=== PATIENT | female | born 1945 | race Caucasian/White ===

== ENCOUNTER 2019-08-28 15:00 | Outpatient (CLI) | payer OTHER, SELFPAY | END 2019-08-28 16:00 | disposition home or self-care (01) | LOC: SLB 15:00 → EDSTATUS 09-02 11:45 | PROVIDERS: ATTEND Colon & Rectal Surgery | DX: Z03.818 Encounter for observation for suspected exposure to other biological agents ruled out (principal) | CPT/HCPCS: U0003-CS ==

== ENCOUNTER 2019-09-09 06:15 | Inpatient (IN) | payer OTHER ==
[~2019-09-09] VITALS: Ht 157.5 cm; Wt 57.2 kg
[2019-09-09] MEDS ORDERED: ALVIMOPAN 12 MG CAPSULE PO ONE ×2 (06:51→07:00)
[2019-09-09] MEDS ORDERED: cefOXitin SODIUM 2 GM in D5W 100 ML IV ONE (07:00)
[2019-09-09] MEDS ORDERED: ENOXAPARIN SODIUM 30 MG/0.3 ML SYRINGE SUBCUT SCH (09:00)
[2019-09-09] MEDS: FAMOTIDINE PF 20 MG/2 ML VIAL IVP SCH ×2 (09:00→21:15)
[2019-09-09] MEDS ORDERED: ACETAMINOPHEN 325 MG TABLET PO PRN (09:00)
[2019-09-09] MEDS ORDERED: ONDANSETRON HCL 4 MG/2 ML VIAL IVP PRN ×2 (09:00→09:15)
[2019-09-09] MEDS ORDERED: HYDROcodone/ACETAMIN 5-325 MG TAB (NORCO/ VICODIN) PO PRN (09:00)
[2019-09-09] MEDS ORDERED: LR 500 ML IV SCH (09:09)
[2019-09-09] MEDS: HYDROmorphone 1 MG INJ. 1 MG/ML AMPUL IVP PRN ×5 (09:10→13:41)
[2019-09-09] MEDS ORDERED: BUPIVACAINE /PF 0.25% 30 ML VIAL INJ ONE (09:12)
[2019-09-09] MEDS ORDERED: GLYCOPYRROLATE 0.2 MG/ML VIAL ONE (09:12)
[2019-09-09] MEDS ORDERED: ONDANSETRON HCL 4 MG/2 ML VIAL ONE (09:12)
[2019-09-09] MEDS ORDERED: NEOSTIGMINE METHYLSULFATE 1 MG/ML, 10 ML VIAL ONE (09:12)
[2019-09-09] MEDS ORDERED: METOCLOPRAMIDE HCL 10 MG/2 ML VIAL ONE (09:12)
[2019-09-09] MEDS ORDERED: LR 1,000 ML IV.SOLN IV ONE (09:12)
[2019-09-09] MEDS ORDERED: fentaNYL CITRATE/PF 100 MCG/2 ML AMP ONE (09:12)
[2019-09-09] MEDS ORDERED: PROPOFOL 200MG/ 20ML VIAL (DIPRIVAN) IV ONE (09:12)
[2019-09-09] MEDS ORDERED: SEVOFLURANE 15 MIN GAS INH ONE (09:12)
[2019-09-09] MEDS ORDERED: NS IRRIG SOLN 1000 ML IR ONE (09:12)
[2019-09-09] MEDS ORDERED: hydrALAZINE HCL 20 MG/ML VIAL IVP PRN (09:15)
[2019-09-09] MEDS ORDERED: HYDROmorphone 2 MG/ML VIAL IVP PRN (09:15)
[2019-09-09] MEDS ORDERED: HYDROmorphone 1 MG INJ. 1 MG/ML AMPUL ONE (09:27)
[2019-09-09] MEDS ORDERED: MEGE400O2 PO (09:57)
[2019-09-09] MEDS ORDERED: PRO20 PO (09:57)
[2019-09-09] MEDS ORDERED: IRON-14 PO (09:57)
[2019-09-09] MEDS ORDERED: LORA-258 PO (09:57)
[2019-09-09] MEDS ORDERED: SODI650T PO (09:57)
[2019-09-09] MEDS ORDERED: PRO40 PO (09:57)
[2019-09-09] MEDS ORDERED: FAMO40TA7 PO (09:57)
--- NOTE | 2019-09-09 10:20 | NUR ---
Notes- Received pt from [facility], drowsy but responsive. Pain id controlled at this time. Dressing is dry and intact on the left side of the abdomen. oriented to call light uses and incentive spirometer but patient still drowsy at this time. will re educate once fully awake. bed alarm on. Will monitor.
[2019-09-09] MEDS: ALVIMOPAN 12 MG CAPSULE PO SCH ×2 (10:30→21:14)
[2019-09-09] MEDS: D5/0.45 NS 1,000 ML IV SCH ×3 (10:30→21:19)
[2019-09-09 10:53] VITALS: BP_SYST 152
[2019-09-09] MEDS ORDERED: cefOXitin SODIUM 2 GM in D5W 100 ML IV SCH (11:00)
--- NOTE | 2019-09-09 11:02 | NUR ---
CONSULTATION PAGED/CALLED Reason for Consultation: [] MEDICAL MGMT Person Who was Notified: [] BAKARI Consulting Physician: [] DR ARRIETA Professor Of Criminal Justice Specialty: [] INTERNAL MEDICINE Ordering Physician: [] DR DUONG ANLGIN
[2019-09-09 11:03] VITALS: BP_SYST 152
--- NOTE | 2019-09-09 11:41 | NUR ---
Notes- Asleep, Breathing even and unlabored. V/S stable. on room air o2 sat at 98%. will monitor.
[2019-09-09] MEDS: METOCLOPRAMIDE HCL 10 MG/2 ML VIAL IVP SCH ×2 (12:21→18:39)
[2019-09-09 12:49] LABS: HEMATOCRIT 26.8 % (36-48); HEMOGLOBIN 8.7 g/dL (12.0-16.0)
[2019-09-09 13:03] LABS: ANION GAP 14 (5-15); CALCIUM 8.3 mg/dL (8.4-11.0); CHLORIDE 112 mmol/L (98-107); CREATININE 4.74 mg/dL (0.55-1.30); GLUCOSE 100 mg/dL (70-99); POTASSIUM 4.2 mmol/L (3.5-5.1); SODIUM SERUM 139 mmol/L (136-145); UREA NITROGEN, BLOOD 55 mg/dL (8-21)
--- NOTE | 2019-09-09 13:45 | NUR ---
Notes- Complains of strong pain, medicated as ordered. Encourage to use incentive spirometer to prevent pneumonia. Pt verbalize understanding.
[2019-09-09 15:21] VITALS: BP_SYST 152
[2019-09-09 16:00] VITALS: BP_SYST 128
--- NOTE | 2019-09-09 16:00 | NUR ---
notes- pt does not voided yet, enc. patient to void and put bedpan at this time, since patient refused to get out of bed. pt stated that she does not have urgency to void at this time. Will try again later.
--- NOTE | 2019-09-09 17:50 | NUR ---
Notes- Resting in bed, still does not have urgency to void. bladder scan done and has 450ml reading. sarah mas MD.
--- NOTE | 2019-09-09 18:11 | NUR ---
MD mas. Spoke to DR. Light and ordered to put maria eugenia and tk in am.
--- NOTE | 2019-09-09 18:55 | NUR ---
Chappell cath inserted with 400cc drain in the bag. Pain is controlled at this time. No acute distress noted. will endorse.
--- NOTE | 2019-09-09 19:30 | NUR ---
OPENING NOTES RECEIVED SBAR REPORT FROM DAY SHIFT RN. PT RESTING IN BED, ALERT & ORIENTED X4, COOPERATIVE. BREATHING IS EVEN AND UNLABORED TO ROOM AIR. IV INTACT, INFUSING ORDERED RATE. PT TOLERATING WELL. DRESSING IS DRY AND INTACT ON THE LEFT SIDE OF THE ABDOMEN. SIDE RAILS X2. CALL LIGHT WITHIN REACH. BED ALARM ON. SAFETY PRECAUTIONS IN PLACE. WILL CONTINUE TO MONITOR.
[2019-09-09 20:00] VITALS: BP_SYST 133
[2019-09-09] MEDS: cefOXitin SODIUM 2 GM in D5W 100 ML IV SCH (21:13)
--- NOTE | 2019-09-09 21:15 | NUR ---
MEDICATION PASS SCHEDULED MEDICATIONS ADMINISTERED ORDERED. DISCUSSED MEDICATIONS ACTION AND POTENTIAL SIDE EFFECTS. PT VERBALIZED UNDERSTANDING. PT GARRISON SHORTNESS OF BREATH. CALL LIGHT WITHIN REACH. BED ALARM ON. SAFETY PRECAUTIONS MAINTAINED. WILL CONTINUE TO MONITOR.
[2019-09-09] MEDS: HYDROcodone/ACETAMIN 5-325 MG TAB (NORCO/ VICODIN) PO PRN (22:40)
--- NOTE | 2019-09-09 22:40 | NUR ---
NORCO/PAIN MEDICATION PT REPORTING LEFT ABDOMEN (INCISION) PAIN. ADMINISTERED NORCO ORDERED PRN. DISCUSSED MEDICATION ACTIONS AND POTENTIAL SIDE EFFECTS. PT VERBALIZED UNDERSTANDING. CALL LIGHT WITHIN REACH. BED LOCKED IN LOWEST LEVEL. SIDE RAILS X2. SAFETY AND FALL PRECAUTIONS ARE IN PLACE. WILL MONITOR.
[2019-09-10 00:16] VITALS: BP_SYST 141
[2019-09-10] MEDS: METOCLOPRAMIDE HCL 10 MG/2 ML VIAL IVP SCH ×3 (00:41→11:22)
[2019-09-10] MEDS: HYDROmorphone 1 MG INJ. 1 MG/ML AMPUL IVP PRN (00:43)
--- NOTE | 2019-09-10 00:43 | NUR ---
DILAUDID/PAIN MEDICATION PT REPORTING SEVERE LEFT ABDOMEN (INCISION) PAIN AT THIS TIME. ADMINISTERED DILAUDID ORDERED PRN. DISCUSSED MEDICATION ACTIONS AND POTENTIAL SIDE EFFECTS. PT VERBALIZED UNDERSTANDING. CALL LIGHT WITHIN REACH. BED LOCKED IN LOWEST LEVEL. SIDE RAILS X2. SAFETY AND FALL PRECAUTIONS ARE IN PLACE. WILL MONITOR.
--- NOTE | 2019-09-10 02:55 | NUR ---
RN ROUNDS PT RESTING IN BED. BREATHING EVEN AND UNLABORED TO ROOM AIR. NO S/S OF PAIN OR SHORTNESS OF BREATH NOTED. IVF INFUSING ORDERED RATE. PT TOLERATING WELL. CALL LIGHT WITHIN REACH. SIDE RAILS X3. BED ALARM ON. SAFETY AND FALL PRECAUTIONS MAINTAINED. WILL CONTINUE TO MONITOR.
--- NOTE | 2019-09-10 05:05 | NUR ---
RESTING PT RESTING IN BED. PT STATED THAT PAIN WAS CONTROLLED WITH DILAUDID MEDICATION. BREATHING IS EASY AND UNLABORED TO ROOM AIR. IVF INFUSING ORDERED RATE. PT TOLERATING WELL. CALL LIGHT WITHIN REACH. SIDE RAILS X3. BED ALARM ON, LOCKED IN LOWEST LEVEL. SAFETY AND FALL PRECAUTIONS IN PLACE. WILL CONTINUE TO MONITOR.
--- NOTE | 2019-09-10 06:45 | NUR ---
CLOSING NOTES PT RESTING IN BED. BREATHING IS EVEN AND UNLABORED TO ROOM AIR. IV INTACT, INFUSING ORDERED RATE. PT TOLERATING WELL. DRESSING IS DRY AND INTACT ON THE LEFT SIDE OF THE ABDOMEN. SIDE RAILS X3. CALL LIGHT WITHIN REACH. BED ALARM ON. SAFETY AND FALL PRECAUTIONS IN PLACE. ALL NEEDS ARE MET THROUGHOUT SHIFT. WILL CONTINUE TO MONITOR UNTIL ENDORSE TO DAY SHIFT RN.
[2019-09-10 07:10] LABS: BASOPHILS % (AUTO) 0.3 % (0.0-2.0); EOSINOPHILS # (AUTO) 0.1 K/uL (0.0-0.4); EOSINOPHILS % (AUTO) 0.9 % (0.0-4.0); HEMATOCRIT 23.9 % (36-48); HEMOGLOBIN 7.9 g/dL (12.0-16.0); LYMPHOCYTES # (AUTO) 0.7 K/uL (1.0-5.5); MEAN CORPUSCULAR HEMOGLOBIN 34 pg (27-31); MEAN CORPUSCULAR HGB CONC 33 % (32-36); MEAN CORPUSCULAR VOLUME 102 fL (79.0-98.0); MONOCYTES # (AUTO) 0.4 K/uL (0.0-1.0); MONOCYTES % (AUTO) 3.7 % (1.7-9.3); NEUTROPHILS # (AUTO) 8.8 K/uL (1.8-7.7); NEUTROPHILS % (AUTO) 88.1 % (40.0-70.0); PLATELET COUNT (AUTO) 180 K/uL (130-430); RED BLOOD CELL COUNT(AUTO) 2.35 MIL/uL (4.2-6.2); RED CELL DISTRIBUTION WIDTH 15.7 % (9.0-15.0); WHITE BLOOD COUNT (AUTO) 9.9 K/uL (4.8-10.8)
--- NOTE | 2019-09-10 07:20 | NUR ---
INITIAL NOTE PT RESTING IN BED, NO ACUTE DISTRESS NOTED, BREATHING EVEN AND UNLABORED. PT ON ROOM AIR, SATURATING AT 99%. IVF INFUSING WELL. HAMMOND DRAINING TO GRAVITY. SCD'S IN PLACE. CALL LIGHT WITHIN REACH, BED IN LOW AND LOCKED POSITION WITH BED ALARM ON.
--- NOTE | 2019-09-10 07:24 | NUR ---
Nutrition Update Josue Scale 16 noted. Pt admitted for Malignant Neoplasm of Colon, unspecified Diet: NPO BMI: 23 kg/m2 RD to follow per nutrition care standards.
[2019-09-10 07:51] LABS: ALANINE AMINOTRANSFERASE 19 U/L (12-78); ALBUMIN 2.6 g/dL (3.4-4.8); ANION GAP 13 (5-15); ASPARTATE AMINOTRANSFERASE 15 U/L (10-37); CALCIUM 7.7 mg/dL (8.4-11.0); CHLORIDE 112 mmol/L (98-107); CREATININE 3.92 mg/dL (0.55-1.30); GLUCOSE 120 mg/dL (70-99); POTASSIUM 3.9 mmol/L (3.5-5.1); SODIUM SERUM 138 mmol/L (136-145); TOTAL BILIRUBIN 0.2 mg/dL (0.0-1.0); UREA NITROGEN, BLOOD 46 mg/dL (8-21)
[2019-09-10 08:00] VITALS: BP_SYST 119
--- NOTE | 2019-09-10 09:00 | NUR ---
D/C HAMMOND OUTPUT 250CC, CLEAR AND YELLOW. PT TOLERATED WELL. PT COMPLAINING OF ABDOMINAL PAIN 08/10. EDUCATED PT ON USES AND SIDE EFFECTS OF NORCO. PT VERBALIZED UNDERSTANDING. NORCO ADMINISTERED. WILL CONTINUE TO MONITOR.
[2019-09-10] MEDS: cefOXitin SODIUM 2 GM in D5W 100 ML IV SCH (09:33)
[2019-09-10] MEDS: ALVIMOPAN 12 MG CAPSULE PO SCH ×2 (09:34→20:29)
[2019-09-10] MEDS: HYDROcodone/ACETAMIN 5-325 MG TAB (NORCO/ VICODIN) PO PRN ×2 (09:34→20:37)
[2019-09-10] MEDS: FAMOTIDINE PF 20 MG/2 ML VIAL IVP SCH ×2 (09:35→20:29)
[2019-09-10] MEDS: D5/0.45 NS 1,000 ML IV SCH ×2 (09:35→20:28)
[2019-09-10] MEDS: ENOXAPARIN SODIUM 30 MG/0.3 ML SYRINGE SUBCUT SCH (09:37)
--- NOTE | 2019-09-10 09:45 | NUR ---
DR. ARRIETA SPOKE WITH MD AT NURSES STATION, INFORMED MD THAT PT IS COMPLAINING OF CONGESTION WITH PRODUCTIVE PHLEGM AND A SORE THROAT. MD STATED HE WILL GO SEE THE PT AT BEDSIDE.
--- NOTE | 2019-09-10 11:36 | NUR ---
RN ROUND PAIN CONTROLLED AT THIS TIME. PT AWAKE, RESTING IN BED. NO CHANGE IN ASSESSMENT. WILL CONTINUE TO MONITOR.
[2019-09-10 12:41] VITALS: BP_SYST 126
--- NOTE | 2019-09-10 13:30 | NUR ---
RN ROUNDS PT RESTING AT THIS TIME. PAIN CONTROLLED AT THIS TIME. WILL CONTINUE TO MONITOR.
--- NOTE | 2019-09-10 15:10 | NUR ---
DR. ANGLIN/RN ROUNDS MD AT BEDSIDE EXAMINING PT, INFORMED MD THAT PT HAS BEEN PASSING GAS, BUT HAS NOT HAD ANY URINE OUTPUT SINCE 9AM WHEN HAMMOND WAS D/C'ED. TO PUT IN NEW ORDERS.
[2019-09-10 16:00] VITALS: BP_SYST 129
--- NOTE | 2019-09-10 18:00 | NUR ---
URINE OUTPUT PT WAS ABLE TO URINATE IN TO BED ROSE. WILL CONTINUE TO MONITOR. BLADDER SCAN SHOWED 200CC.
--- NOTE | 2019-09-10 19:15 | NUR ---
OPENING NOTES PATIENT IN BED AAOX 4. BREATHING UNLABORED ON ROOM AIR. IVF INFUSING. LEFT ABDOMINAL DRESSING DRY AND INTACT. CALL LIGHT WITH IN REACH.
--- NOTE | 2019-09-10 19:32 | NUR ---
CLOSING NOTE PT AWAKE, RESTING IN BED. PAIN CONTROLLED AT THIS TIME. PT TOLERATED DINNER WELL. IVF INFUSING WELL. CALL LIGHT WITHIN REACH, BED IN LOW AND LOCKED POSITION WITH BED ALARM ON. ALL NEEDS MET THROUGHOUT SHIFT. PT CARE ENDORSED TO HEALTH AND NUTRITION SPECIALIST RN.
[2019-09-10 20:32] VITALS: BP_SYST 153
--- NOTE | 2019-09-10 20:37 | NUR ---
PAING MGT PATIENT DUE MEDICATIONS GIVEN. MEDICATED WITH NORCO FOR C/O LUQ ABDOMINAL PAIN 12/11. VITAL SIGNS STABLE.
--- NOTE | 2019-09-10 20:55 | NUR ---
HS CARE HS CARE DONE. PATIENT CHUX CHANGED. CALL LIGHT WITH IN REACH.
[2019-09-10 23:55] VITALS: BP_SYST 139
[2019-09-11] MEDS: METOCLOPRAMIDE HCL 10 MG/2 ML VIAL IVP SCH ×3 (01:54→12:21)
--- NOTE | 2019-09-11 02:05 | NUR ---
ROUNDS PATIENT RESTING IN BED. IVF INFUSING. DENIES PAIN. VITAL SIGNS STABLE. CALL LIGHT WITH IN REACH.
--- NOTE | 2019-09-11 04:16 | NUR ---
ROUNDS PATIENT ASSISTED WITH BEDPAN USE.
[2019-09-11] MEDS: D5/0.45 NS 1,000 ML IV SCH (06:13)
--- NOTE | 2019-09-11 06:18 | NUR ---
CLOSING NOTES ASSISTED WITH BED ROSE USE. PATIENT NEEDS ATTENDED. IVF INFUSING WITH IV LINE INTACT AND PATENT. LEFT ABDOMEN DRESSING DRY AND INTACT. CALL LIGHT WITH IN REACH.
--- NOTE | 2019-09-11 07:30 | NUR ---
INITIAL NOTE PT RESTING IN BED, NO ACUTE DISTRESS NOTED, BREATHING EVEN AND UNLABORED. PT ON ROOM AIR, SATURATING AT 99%. IVF INFUSING WELL. SCD'S IN PLACE. CALL LIGHT WITHIN REACH, BED IN LOW AND LOCKED POSITION WITH BED ALARM ON.
[2019-09-11 08:00] VITALS: BP_SYST 135
[2019-09-11] MEDS: ALVIMOPAN 12 MG CAPSULE PO SCH (09:12)
[2019-09-11] MEDS: FAMOTIDINE PF 20 MG/2 ML VIAL IVP SCH (09:12)
[2019-09-11] MEDS: ENOXAPARIN SODIUM 30 MG/0.3 ML SYRINGE SUBCUT SCH (09:17)
--- NOTE | 2019-09-11 09:30 | NUR ---
BEDPAN ASSISTED PT WITH BED PAIN, PT VOIDED AND HAD SMALL BOWEL MOVEMENT. ASSISTED PT WITH FCO CARE. REPOSITIONED FOR COMFORT.
--- NOTE | 2019-09-11 10:10 | NUR ---
DR. ARRIETA/RN ROUNDS MD AT BEDSIDE EXAMINING PT. INFORMED MD BUN/CRIT ELEVATED, PT HAS NO NEPHRO CONSULT. MD TO PUT IN NEW ORDERS. NO CHANGE IN PT ASSESSMENT. WILL CONTINUE TO MONITOR.
[2019-09-11] MEDS: HYDROcodone/ACETAMIN 5-325 MG TAB (NORCO/ VICODIN) PO PRN (10:26)
--- NOTE | 2019-09-11 12:30 | NUR ---
AMBULATE PT ABLE TO AMBULATE USING CANE. STEADY GAIT. PT COMPLAINS OF MILD SOB ON EXERTION. O2 SATURATING AT 100%. EDUCATED PT ON USE AND PURPOSE OF INCENTIVE SPIROMETER. PT VERBALIZED UNDERSTANDING AT THIS TIME. PT STATES THAT SHE WILL TRY TO USE IS LATER SHE WOULD LIKE TO REST.
--- NOTE | 2019-09-11 12:38 | NUR ---
DR. ANGLIN/RN ROUNDS MD AT BEDSIDE EXAMINING PT. MD REMOVED BANDAGES FROM INCISION SITE, 3 JUAN ALBERTO VISILE, SCANT RED BLEEDING. MD INSTRUCTED PT THAT SHE MAY EAT REGULAR FOOD AND SHOWER. PT OK TO BE CLEARED FOR DISCHARGE PER DR. ANGLIN. PT VERBALIZED UNDERSTANDING.
[2019-09-11 13:13] LABS: BILIRUBIN,URINE NEGATIVE (NEGATIVE); BLOOD, URINE 3+ (NEGATIVE); CLARITY/URINE SL CLOUDY (CLEAR); COLOR,URINE YELLOW (YELLOW); GLUCOSE,URINE NEGATIVE (NEGATIVE); KETONES,URINE NEGATIVE (NEGATIVE); LEUKOCYTE ESTERASE ,URINE 1+ (NEGATIVE); NITRITE, URINE NEGATIVE (NEGATIVE); PROTEIN URINE TRACE (NEGATIVE); UROBILINOGEN,URINE 0.2 (0.2-1.0)
[2019-09-11 13:43] LABS: BACTERIA,URINE MODERATE /HPF (None Seen)
[2019-09-11 13:44] LABS: HYALINE CASTS, URINE 0-10 /LPF (None Seen)
--- NOTE | 2019-09-11 14:48 | NUR ---
AMBULATE TO RESTROOM ASSISTED PT WITH IV POLE. PT WAS ABLE TO AMBULATE WITHOUT ASSIST WITH STEADY GAIT. PAIN CONTROLLED AT THIS TIME.
--- NOTE | 2019-09-11 15:20 | NUR ---
DR. SAUNDERS/DR. ARRIETA SPOKE WITH DR. PERALTA, INFORMED MD THAT PT HAS DISCHARGE ORDER. MD TO CLEAR PT AND INSTRUCTED FOR PT TO FOLLOW UP IN HIS OFFICE IN ONE WEEK. DR. ARRIETA MADE AWARE OF DISCHARGE ORDER PER DR. ANGLIN. INFORMED DR. ARRIETA THAT PT WAS CLEARED BY COMPUTER EQUIPMENT REPAIRER. DR. ARRIETA OK TO DISCHARGE PT.
[2019-09-11 16:00] VITALS: BP_SYST 140
[2019-09-11] MEDS ORDERED: HYDR-4272 PO (16:11)
[2019-09-11 16:14] VITALS: BP_SYST 140
--- NOTE | 2019-09-11 17:20 | NUR ---
DISCHARGE NOTE DISCHARGE PACKET AND INSTRUCTIONS WITH PT. PRESCRIPTIONS WITH PT. ALL BELONG WITH PT. IV CATHETER REMOVED, CATHETER INTACT, NO BLEEDING. ID HOSPITAL REMOVED. PT AMBULATES WITH STEADY GAIT USING PERSONAL CANE. EDUCATED PT ON SAFETY AND USE OF WHEELCHAIR. ESCORTED PT VIA WHEEL CHAIR TO [facility]. VIKTORIA CHIDI TO TAKE PT HOME IN PRIVATE AUTO.
--- NOTE | 2019-09-17 12:12 | NUR ---
Discharge Follow Up Phone Call Phoned patient, . Patient stated that she had been in significant pain, but was much improved as of today. She has a follow up appointment made with surgeon, Dr Light, on 09/18/19. She is also waiting for a call back from her PCP. Discussed if she should follow up with associate professor of management, Dr Beverly, or a associate professor of management she saw in the past. Advised her to discuss with her PCP, as she belongs to the [facility] and would want to follow up with a provider covered by her insurance. Patient agreed. Patient had no other questions or concerns.
== END 2019-09-11 17:10 | disposition home or self-care (01) | DRG 329 ==
LOC: SMU 06:15
PROVIDERS: ADMIT Colon & Rectal Surgery; ATTEND Colon & Rectal Surgery
PROC: 0DB80ZZ Excision of Small Intestine, Open Approach (ICD-10-PCS; 2019-09-09)
PROC: 0DBB0ZZ Excision of Ileum, Open Approach (ICD-10-PCS; principal; 2019-09-09 07:30)
DX: Z43.2 Encounter for attention to ileostomy (principal); N17.0 Acute kidney failure with tubular necrosis; E43 Unspecified severe protein-calorie malnutrition; I10 Essential (primary) hypertension; Z87.891 Personal history of nicotine dependence; Z85.038 Personal history of other malignant neoplasm of large intestine; Z68.23 Body mass index [BMI] 23.0-23.9, adult
CPT/HCPCS: 36415; 80048; 80053; 81000-TC; 85018-TC; 85025; 87081; 88304; 88305; J0694; J1170; J1650; J2405; J2704; J2710; J2765; J3010; J3490; J7060; J7120